=== PATIENT | female | born 1985 | race Caucasian/White ===

== ENCOUNTER 2022-12-05 09:43 | Emergency (ER) | payer OTHER ==
[~2022-12-05] VITALS: Ht 162.6 cm; Wt 72.6 kg
[2022-12-05 10:05] VITALS: BP 122/76; PULSE 92; RESP 18; TEMP 98; O2SAT 98
== END 2022-12-05 11:54 | disposition left against medical advice (07) ==
LOC: MED 09:43
DX: J02.9 Acute pharyngitis, unspecified (principal); R50.9 Fever, unspecified; Z53.21 Procedure and treatment not carried out due to patient leaving prior to being seen by health care provider
CPT/HCPCS: 99281